=== PATIENT | male | born 1930 | race Caucasian/White ===

== ENCOUNTER 2016-11-17 17:44 | Emergency (ER) | payer MEDICARE, BC ==
[2016-11-17 18:57] LABS: Hematocrit 22 % (42-52); Mean Corpuscular HGB Conc 32 g/dl (31-36); Mean Corpuscular Hemoglobin 29 pg (27-31); Mean Corpuscular Volume 92 fL (80-94); Mean Platelet Volume 7 um3 (7.4-10.4); Red Blood Count 2.34 10^6/ul (4.0-5.4); Red Cell Distribution Width 22 % (10.5-15)
[2016-11-17 18:59] LABS: Add Diff/Slide Review? Manual Diff Added; Comments Flag Yes; White Blood Count 43.2 10^3/ul (3.5-10.8)
[2016-11-17 19:01] LABS: Hemoglobin 6.8 g/dl (14.0-18.0)
[2016-11-17 19:04] LABS: Albumin 3.3 g/dL (3.2-5.2); C Reactive Protein 7.83 mg/L (< 5.00); Calcium 8.9 mg/dL (8.6-10.3); EGFR African American 58.6 (>60); EGFR Non-African American 45.5 (>60); Globulin 3.8 g/dL (2-4); Potassium 4.1 mmol/L (3.5-5.0); Total Bilirubin 0.8 mg/dL (0.2-1.0); Total Protein 7.1 g/dL (6.4-8.9)
[2016-11-17 19:51] LABS: Eosinophils % 1 % (0-6); Immature Granulocytes 46 % (0-9); Metamyelocytes % 7 % (0-2); Myelocytes % 10 % (0-1); Neutrophil % 33 % (38-83)
[2016-11-17 19:56] LABS: Technical Review Performed By ROB0080
[2016-11-17] MEDS ORDERED: Insulin REGULAR(*) 1 UNITS UNIT SUBCUT ONE ×2 (19:57→21:29)
[2016-11-17 19:58] LABS: Polychromasia 1+
[2016-11-17 19:59] LABS: Hypochromasia 1+
--- NOTE | 2016-11-17 21:21 | RAD ---
INDICATION: Weakness COMPARISON: August 06, 2015 TECHNIQUE: An AP portable view obtained at 2054 hours is submitted. FINDINGS: Bones/Soft Tissues: There are no acute bony findings. Cardiomediastinal: The cardiomediastinal silhouette is normal. Lungs: There are no infiltrates. Pleura: There are small bilateral effusions. Other: None IMPRESSION: Small bilateral effusions.
--- NOTE | 2016-11-17 22:27 | ED ---
Michelle Ramesh Michael, scribed for Curt Colmenares MD on 11/17/16 at 2039 . HPI Diabetic - HPI Summary HPI Summary: 86 y/o male comes to the ED presenting with an increased blood glucose level of 299 that started 4 days ago. The reports that the blood glucose was elevated this afternoon at 1600 after the pt had a piece of cake. At the ED, the blood glucose was elevated to 346. She states the pt does not have a cough, CP, or SOB. The PMHx is significant for DM, Alzheimer's, and recently dx with leukemia. - History Of Current Complaint Chief Complaint: EDDiabeticProb Time Seen by Provider: 11/17/16 18:27 Hx Obtained From: Family/Cable Assembler, Medical Records Hx From Patient Unobtainable Due To: Other - Alzheimer's - Allergies/Home Medications Allergies/Adverse Reactions: Allergies Allergy/AdvReac Type Severity Reaction Status Date / Time Oxaprozin [From Daypro] Allergy Severe Hives Verified 11/03/16 12:38 Cephalexin [From Keflex] Allergy Unknown Unknown Verified 11/03/16 12:38 Reaction Details Sulfa Antibiotics Allergy Unknown Unknown Verified 11/03/16 12:38 Reaction Details Naproxen Allergy Hives Verified 11/03/16 12:38 Home Medications: Home Medications Donepezil TAB* [Aricept TAB*] 10 mg PO QPM 11/17/16 [History Confirmed 11/17/16] Humulin R 100units/Ml 16 unit IM PC 11/17/16 [History Confirmed 11/17/16] Loperamide HCl [Anti-Diarrheal] 2 mg PO QID PRN 11/17/16 [History Confirmed ] Ondansetron TAB* [Zofran Tab*] 4 mg PO Q6H PRN 11/17/16 [History Confirmed 11/17] glipiZIDE TAB* [Glucotrol TAB*] 10 mg PO BID 11/17/16 [History Confirmed ] PMH/Surg Hx/FS Hx/Imm Hx Endocrine/Hematology History: Reports: Hx Anticoagulant Therapy - aggrenox, Hx Diabetes, Hx Thyroid Disease Cardiovascular History: Reports: Hx Hypertension Denies: Hx Pacemaker/ICD GI History: Reports: Hx Gastroesophageal Reflux Disease, Hx Gastrointestinal Bleed Comment Only: Other GI Disorders - colectomy History: Reports: Hx Chronic Renal Failure, Other Problems/Disorders - prostate cancer, TURP Musculoskeletal History: Reports: Hx Arthritis, Other Musculoskeletal History - L knee replacement, R hip ORIF, R hip arthroplasty, rotator cuff Sensory History: Reports: Hx Contacts or Glasses, Hx Deafness - Right ear, Hx Hearing Aid - Left ear Opthamlomology History: Reports: Hx Contacts or Glasses Neurological History: Reports: Hx Dementia, Other Neuro Impairments/Disorders - alzheimers-PAIN CLINIC PT Psychiatric History: Reports: Hx Anxiety, Other Psychiatric Issues/Disorders - dementia, on Lexapro and memantine Denies: Hx Panic Disorder - Surgical History Surgery Procedure, Year, and Place: 1939-TONSILECTOMY 1997-TURP. 1946-PLASTIC SURGERY-SKIN GRAFTING Rt EAR 1998- Rt KNEE-MMT. 1947- APPENDECTOMY. R hip replacement. 1999- Lt KNEE & REPLACEMENT-07/03/06. 1984- Rt KNEE 09/07/03 -CARDIAC CATH-NO STENT. 1994- Rt SHOULDER-RTC 2010 & 2011- Rt HIP-PARTIAL THEN TOTAL REPLACEMENT. RIGHT ANKLE Infectious Disease History: No Infectious Disease History: Denies: Traveled Outside the [place] in Last 30 Days - Family History Known Family History: Positive: Diabetes - Social History Occupation: Retired Lives: With Family Alcohol Use: None Substance Use Type: Reports: None Substance Use Comment - Amount & Last Used: hydrocodone Smoking Status (MU): Never Smoked Tobacco Review of Systems Positive: Other - elevated blood glucose. Negative: Fever, Chills Negative: Erythema Negative: Sore Throat Negative: Chest Pain Negative: Shortness Of Breath, Cough Negative: Abdominal Pain, Vomiting, Nausea Negative: dysuria, hematuria Negative: Edema Negative: Rash Neurological: Other - no dizziness All Other Systems Reviewed And Are Negative: Yes Physical Exam - Summary Physical Exam Summary: Constitutional: Well-developed, Well-nourished, Alert. (-) Distressed Skin: Warm, Dry HENT: Normocephalic; Atraumatic Eyes: Conjunctiva normal Neck: Musculoskeletal ROM normal neck. (-) JVD, (-) Stridor, (-) Tracheal deviation Cardio: Rhythm regular, rate normal, Heart sounds normal; Intact distal pulses; The pedal pulses are 2+ and symmetric. Radial pulses are 2+ and symmetric. ~(-) Murmur Pulmonary/Chest wall: Effort normal. (-) Respiratory distress, (-) Wheezes, (-) Rales, positive rhonchi bilaterally in lung bases. Abd: Soft, (-) Tenderness, ~(-) Distension, (-) Guarding, (-) Rebound Musculoskeletal: (-) Edema Lymph: (-) Cervical adenopathy Neuro: Alert, Oriented x3 Psych: Mood and affect Normal Triage Information Reviewed: Yes Vital Signs On Initial Exam: Initial Vitals Temp Pulse Resp BP Pulse Ox 97.1 F 89 18 122/58 98 11/17/16 18:05 11/17/16 18:05 11/17/16 18:05 11/17/16 18:05 11/17/16 18:05 Vital Signs Reviewed: Yes Diagnostics - Vital Signs Vital Signs Temp Pulse Resp BP Pulse Ox 11/17/16 18:05 97.1 F 89 18 122/58 98 - Laboratory Lab Results: Lab Results 11/17/16 11/17/16 11/17/16 Range/Units 18:40 18:40 18:40 WBC 43.2 H (3.5-10.8) 10^3/ul RBC 2.34 L (4.0-5.4) 10^6/ul Hgb 6.8 L (14.0-18.0) g/dl Hct 22 L (42-52) % MCV 92 (80-94) fL MCH 29 (27-31) pg MCHC 32 (31-36) g/dl RDW 22 H (10.5-15) % Plt Count 27 L (150-450) 10^3/ul MPV 7 L (7.4-10.4) um3 Immature Gran % (Auto) 46 H (0-9) % Absolute Neuts (auto) 34.6 H (1.5-7.7) 10^3/ul Absolute Lymphs (auto) 5.2 H (1.0-4.8) 10^3/ul Absolute Monos (auto) 3.0 H (0-0.8) 10^3/ul Absolute Eos (auto) 0.4 (0-0.6) 10^3/ul Absolute Basos (auto) 0 (0-0.2) 10^3/ul Absolute Nucleated RBC 0 10^3/ul Neutrophils % 33 L (38-83) % Band Neutrophils % 29 H (0-8) % Lymphocytes % 12 L (25-47) % Monocytes % 7 (0-13) % Eosinophils % 1 (0-6) % Metamyelocytes % 7 H (0-2) % Myelocytes % 10 H (0-1) % Blast Cells % 1 H* % Nucleated RBCs/100 WBC 1 H (0-0) Normal RBC Morphology Pending Polychromasia 1+ Hypochromasia 1+ Sodium 129 L (133-145) mmol/L Potassium 4.1 (3.5-5.0) mmol/L Chloride 97 L (101-111) mmol/L Carbon Dioxide 26 (22-32) mmol/L Anion Gap 6 (2-11) mmol/L BUN 22 (6-24) mg/dL Creatinine 1.47 H (0.67-1.17) mg/dL Est GFR ( Amer) 58.6 (>60) Est GFR (Non-Af Amer) 45.5 (>60) BUN/Creatinine Ratio 15.0 (8-20) Glucose 346 H (70-100) mg/dL Lactic Acid 2.2 H* (0.5-2.0) mmol/L Calcium 8.9 (8.6-10.3) mg/dL Total Bilirubin 0.80 (0.2-1.0) mg/dL AST 65 H (13-39) U/L ALT 15 (7-52) U/L Alkaline Phosphatase 84 (34-104) U/L C-Reactive Protein 7.83 H (< 5.00) mg/L Total Protein 7.1 (6.4-8.9) g/dL Albumin 3.3 (3.2-5.2) g/dL Globulin 3.8 (2-4) g/dL Albumin/Globulin Ratio 0.9 L (1-3) Blood Type Antibody Screen 11/17/16 Range/Units 18:40 WBC (3.5-10.8) 10^3/ul RBC (4.0-5.4) 10^6/ul Hgb (14.0-18.0) g/dl Hct (42-52) % MCV (80-94) fL MCH (27-31) pg MCHC (31-36) g/dl RDW (10.5-15) % Plt Count (150-450) 10^3/ul MPV (7.4-10.4) um3 Immature Gran % (Auto) (0-9) % Absolute Neuts (auto) (1.5-7.7) 10^3/ul Absolute Lymphs (auto) (1.0-4.8) 10^3/ul Absolute Monos (auto) (0-0.8) 10^3/ul Absolute Eos (auto) (0-0.6) 10^3/ul Absolute Basos (auto) (0-0.2) 10^3/ul Absolute Nucleated RBC 10^3/ul Neutrophils % (38-83) % Band Neutrophils % (0-8) % Lymphocytes % (25-47) % Monocytes % (0-13) % Eosinophils % (0-6) % Metamyelocytes % (0-2) % Myelocytes % (0-1) % Blast Cells % % Nucleated RBCs/100 WBC (0-0) Normal RBC Morphology Polychromasia Hypochromasia Sodium (133-145) mmol/L Potassium (3.5-5.0) mmol/L Chloride (101-111) mmol/L Carbon Dioxide (22-32) mmol/L Anion Gap (2-11) mmol/L BUN (6-24) mg/dL Creatinine (0.67-1.17) mg/dL Est GFR ( Amer) (>60) Est GFR (Non-Af Amer) (>60) BUN/Creatinine Ratio (8-20) Glucose (70-100) mg/dL Lactic Acid (0.5-2.0) mmol/L Calcium (8.6-10.3) mg/dL Total Bilirubin (0.2-1.0) mg/dL AST (13-39) U/L ALT (7-52) U/L Alkaline Phosphatase (34-104) U/L C-Reactive Protein (< 5.00) mg/L Total Protein (6.4-8.9) g/dL Albumin (3.2-5.2) g/dL Globulin (2-4) g/dL Albumin/Globulin Ratio (1-3) Blood Type AB Negative Antibody Screen Pending Result Diagrams: 11/17/16 18:40 11/17/16 18:40 Lab Statement: Any lab studies that have been ordered have been reviewed, and results considered in the medical decision making process. - Radiology CXR Xray Interpretation: Positive (See Comments) - small bilateral effusions Radiology Interpretation Completed By: Radiologist Diabetic Course/Dx - Course Course Of Treatment: redraw of blood glucose-322. Discussed with Dr. Early at 2100-no blood transfussion is needed due to hemoglobin. Dr. Early recommends hospice. Discussed possibility UTI but declines straight catheter and pt cant urinate on command. He will follow up with Urgent Care or PCP tomorrow. As needed knows UTI can cause worsening hyperglycemia, kidney failure, and sepsis. - Diagnoses Provider Diagnoses: Hyperglycemia, Noncompliance with dietary restriction, Chronic anemia Discharge - Discharge Plan Condition: Stable Disposition: HOME Patient Education Materials: Diabetic Hyperglycemia (ED) Referrals: Andre Ferris MD [Primary Care Provider] - Additional Instructions: You will follow up with Dr. Ferris or Urgent Care tomorrow. Please return to the ED with worsening symptoms. The documentation as recorded by the Michelle gonzales Michael accurately reflects the service I personally performed and the decisions made by me, Curt Colmenares MD.
[2016-11-17 23:44] VITALS: BP 130/90
== END 2016-11-17 22:45 | disposition home or self-care (01) ==
LOC: ED 17:44
DX: E11.65 Type 2 diabetes mellitus with hyperglycemia (principal); D64.9 Anemia, unspecified
CPT/HCPCS: 36415; 71010; 80053; 83605; 85025; 86140; 86850; 86900; 86901; 99283

== ENCOUNTER 2017-01-03 15:02 | Inpatient (IN) | payer MEDICARE, BC ==
--- NOTE | 2017-01-03 15:48 | RAD ---
INDICATION: Leukocytosis COMPARISON: November 17, 2016 TECHNIQUE: An AP portable view obtained at 1523 hours is submitted. FINDINGS: Bones/Soft Tissues: There are no acute bony findings. Cardiomediastinal: The cardiomediastinal silhouette is unchanged when allowing mild rotation on the current examination Lungs: There is mild bibasilar atelectasis or small infiltrates. pleura: Small left-sided pleural effusion. Other: None IMPRESSION: MILD BIBASILAR INFILTRATE OR ATELECTASIS WITH SMALL LEFT-SIDED EFFUSION.
[2017-01-03 15:58] LABS: Hematocrit 20 % (42-52); Hemoglobin 6.8 g/dl (14.0-18.0); Mean Corpuscular HGB Conc 34 g/dl (31-36); Mean Corpuscular Hemoglobin 31 pg (27-31); Mean Corpuscular Volume 90 fL (80-94); Red Blood Count 2.22 10^6/ul (4.0-5.4); Red Cell Distribution Width 17 % (10.5-15); White Blood Count 26.5 10^3/ul (3.5-10.8)
[2017-01-03 16:02] LABS: Add Diff/Slide Review? Manual Diff Added; Comments Flag Yes
[2017-01-03 16:13] LABS: ALT 16 U/L (7-52); Albumin 2.9 g/dL (3.2-5.2); Alkaline Phosphatase 80 U/L (34-104); BUN/Creatinine Ratio 17.5 (8-20); Blood Urea Nitrogen 21 mg/dL (6-24); CO2 Carbon Dioxide 26 mmol/L (22-32); Calcium 8.5 mg/dL (8.6-10.3); Chloride 96 mmol/L (101-111); EGFR Non-African American 57.5 (>60); Globulin 3.7 g/dL (2-4); Glucose 302 mg/dL (70-100); Sodium 128 mmol/L (133-145); Total Protein 6.6 g/dL (6.4-8.9)
[2017-01-03] MEDS ORDERED: Levofloxacin 750 MG IVPREMIX(* 750 MG/150 ML BAG IVPB ONE (16:33)
[2017-01-03] MEDS ORDERED: Aztreonam (*) 2 GM in NS 0.9% 50 ML* 50 ML IVPB ONE (16:33)
[2017-01-03 16:35] LABS: Eosinophils % 1 % (0-6); Hypochromasia 2+; Immature Granulocytes 23 % (0-9); Metamyelocytes % 2 % (0-2); Myelocytes % 5 % (0-1); Neutrophil % 56 % (38-83); RBC Morphology Normal (Normal)
[2017-01-03 16:36] LABS: Add Path Review? YES
[2017-01-03] MEDS ORDERED: Sterile Water for Inj* 10 ML ONE (17:10)
[2017-01-03] MEDS ORDERED: Ondansetron INJ* 2 MG/ML VIAL IV PRN (18:29)
[2017-01-03] MEDS ORDERED: Acetaminophen TAB* 325 MG PO PRN (18:29)
--- NOTE | 2017-01-03 18:29 | RAD ---
HISTORY: Right leg swelling TECHNIQUE: Multiple transverse and longitudinal ultrasound images were obtained of the veins of the right lower extremity using grayscale, color Doppler, and spectral Doppler imaging with and without compression and with augmentation. FINDINGS: VEINS: The common femoral vein, deep femoral vein, femoral vein and popliteal vein are compressible throughout their course, with normal flow on color Doppler imaging and normal response to augmentation on spectral Doppler imaging. SOFT TISSUES: Grossly normal. No large popliteal fossa cyst was identified. IMPRESSION: No sonographic evidence of deep vein thrombosis.
[2017-01-03] MEDS ORDERED: Dextrose 50% Syringe 50 ML* 25 GM/50 ML SYRINGE IV PUSH PRN (18:35)
--- NOTE | 2017-01-03 22:25 | ED ---
berenice Ramesh Timothy, scribed for Curt Colmenares MD on 01/03/17 at 1639 . Lower Extremity - HPI Summary HPI Summary: LEVEL V CAVEAT: PT HAS ALZHEIMERS AND DEMENTIA AND IS UNABLE TO GIVE AN ACCURATE HISTORY Daniele Stevenson is an 86 yo male presenting to [facility] with 7/10 right heel pain due to a right heel wound as well as exacerbation of leukemia with a platelet count of 10, sent here by Dr. Barron. His pain is decreased with elevation of his right foot. His is present in room, and states he has had significant productive cough. He has a routine appointment tomorrow to have transfusion of 2 units of blood and 1 unit of platelets. His MHx includes leukemia, thyroid disease, CAD, HTN, aggrenox therapy, CVA, dementia, alzheimers, GERD, chronic renal failure, prostate cancer, TURP, arthritis, DM, anxiety. - History of Current Complaint Stated Complaint: SENT BY DR BARRON Time Seen by Provider: 01/03/17 16:41 Hx Obtained From: Patient, Family/Pathology Technician Hx From Patient Unobtainable Due To: Dementia Mechanism Of Injury: Unknown Onset of Pain: Immediate Onset/Duration: Still Present Severity Initially: Moderate Severity Currently: Moderate Pain Intensity: 7 Pain Scale Used: 0-10 Numeric Timing: Constant Location: Is Discrete @ - right heel Associated Signs And Symptoms: Positive: Other - blood blister Alleviating Factor(s): Rest, Elevation - Allergies/Home Medications Allergies/Adverse Reactions: Allergies Allergy/AdvReac Type Severity Reaction Status Date / Time Oxaprozin [From Daypro] Allergy Severe Hives Verified 12/27/16 12:52 Cephalexin [From Keflex] Allergy Unknown Unknown Verified 12/27/16 12:52 Reaction Details Sulfa Antibiotics Allergy Unknown Unknown Verified 12/27/16 12:52 Reaction Details Naproxen Allergy Hives Verified 12/27/16 12:52 Home Medications: Home Medications Acetaminophen TAB* [Tylenol TAB*] 650 mg PO Q4H PRN 01/03/17 [History Confirmed 01/03/17] Dutasteride (NF) [Avodart (NF)] 0.5 mg PO QPM 01/03/17 [History Confirmed ] PMH/Surg Hx/FS Hx/Imm Hx Endocrine/Hematology History: Reports: Hx Anticoagulant Therapy - aggrenox, Hx Diabetes, Hx Thyroid Disease Cardiovascular History: Reports: Hx Hypertension Denies: Hx Pacemaker/ICD GI History: Reports: Hx Gastroesophageal Reflux Disease, Hx Gastrointestinal Bleed Comment Only: Other GI Disorders - colectomy History: Reports: Hx Chronic Renal Failure, Other Problems/Disorders - prostate cancer, TURP Musculoskeletal History: Reports: Hx Arthritis, Other Musculoskeletal History - L knee replacement, R hip ORIF, R hip arthroplasty, rotator cuff Sensory History: Reports: Hx Contacts or Glasses, Hx Deafness - Right ear, Hx Hearing Aid - Left ear Opthamlomology History: Reports: Hx Contacts or Glasses Neurological History: Reports: Hx Dementia, Other Neuro Impairments/Disorders - alzheimers-PAIN CLINIC PT Psychiatric History: Reports: Hx Anxiety, Other Psychiatric Issues/Disorders - dementia, on Lexapro and memantine Denies: Hx Panic Disorder - Surgical History Surgery Procedure, Year, and Place: 1939-TONSILECTOMY 1997-TURP. 1946-PLASTIC SURGERY-SKIN GRAFTING Rt EAR 1998- Rt KNEE-MMT. 1947- APPENDECTOMY. R hip replacement. 1999- Lt KNEE & REPLACEMENT-07/03/06. 1984- Rt KNEE 09/07/03 -CARDIAC CATH-NO STENT. 1994- Rt SHOULDER-RTC 2010 & 2011- Rt HIP-PARTIAL THEN TOTAL REPLACEMENT. RIGHT ANKLE Infectious Disease History: No Infectious Disease History: Denies: Traveled Outside the [place] in Last 30 Days - Family History Known Family History: Positive: Diabetes Negative: Cardiac Disease, Hypertension - Social History Occupation: Retired Lives: At The Longterm Alcohol Use: None Substance Use Type: Reports: Prescribed Substance Use Comment - Amount & Last Used: hydrocodone Hx Tobacco Use: No Smoking Status (MU): Never Smoked Tobacco - Additional Comments History Additional Comments: LEVEL V CAVEAT: PT HAS ALZHEIMERS AND DEMENTIA AND IS UNABLE TO GIVE AN ACCURATE HISTORY Review of Systems - ROS Summary Review of Systems Summary: LEVEL V CAVEAT: PT HAS ALZHEIMERS AND DEMENTIA AND IS UNABLE TO REVIEW SYSTEMS Constitutional: Negative Negative: Fever, Chills Eyes: Negative Negative: Other - eye redness ENT: Negative Negative: Sore Throat Cardiovascular: Negative Negative: Chest Pain Positive: Cough. Negative: Shortness Of Breath Gastrointestinal: Negative Negative: Abdominal Pain, Vomiting, Nausea Genitourinary: Negative Negative: dysuria, hematuria Musculoskeletal: Negative Negative: Myalgia, Edema - leg Positive: Other - right heel wound Neurological: Negative Psychological: Normal All Other Systems Reviewed And Are Negative: No Physical Exam - Summary Physical Exam Summary: LEVEL V CAVEAT: PT HAS ALZHEIMERS AND DEMENTIA AND IS UNABLE TO ACTIVELY PARTICIPATE IN PE Constitutional: Well-developed, Well-nourished, Alert. (-) Distressed Skin: Warm, Dry. 2cm x 2cm blood blister on back of right heel. HENT: Normocephalic; Atraumatic Eyes: Conjunctiva normal Neck: Musculoskeletal ROM normal neck. (-) JVD, (-) Stridor, (-) Tracheal deviation Cardio: Rhythm regular, rate normal, Heart sounds normal; Intact distal pulses; The pedal pulses are 2+ and symmetric. Radial pulses are 2+ and symmetric. (-) Murmur Pulmonary/Chest wall: Effort normal. (-) Respiratory distress, (-) Wheezes, (-) Rales. Mild rhonchi in bases bilaterally. Abd: Soft, (-) Tenderness, (-) Distension, (-) Guarding, (-) Rebound Musculoskeletal: (+1) Edema in right leg Lymph: (-) Cervical adenopathy Neuro: Alert, Oriented x3 Psych: dementia Triage Information Reviewed: Yes Vital Signs On Initial Exam: Initial Vitals Pulse Ox 97 01/03/17 15:13 Vital Signs Reviewed: Yes Diagnostics - Vital Signs Vital Signs Temp Pulse Resp BP Pulse Ox 01/03/17 15:51 88 24 99 01/03/17 15:15 97.8 F 90 16 150/69 97 01/03/17 15:13 97 - Laboratory Lab Results: Lab Results 01/03/17 01/03/17 Range/Units 15:50 15:50 WBC 26.5 H (3.5-10.8) 10^3/ul RBC 2.22 L (4.0-5.4) 10^6/ul Hgb 6.8 L (14.0-18.0) g/dl Hct 20 L (42-52) % MCV 90 (80-94) fL MCH 31 (27-31) pg MCHC 34 (31-36) g/dl RDW 17 H (10.5-15) % Plt Count Pending MPV Pending Absolute Neuts (auto) Pending Absolute Lymphs (auto) Pending Absolute Monos (auto) Pending Absolute Eos (auto) Pending Absolute Basos (auto) Pending Absolute Nucleated RBC Pending Lactic Acid 1.9 (0.5-2.0) mmol/L Result Diagrams: 01/03/17 15:50 01/03/17 15:50 Lab Statement: Any lab studies that have been ordered have been reviewed, and results considered in the medical decision making process. Lower Extremity Course/Dx - Course Assessment/Plan: Daniele Francisco is an 86 yo male presenting [facility] with a wound to his right heel and dementia and alzheimers. After clinical examination and discussion with Dr. Early and Dr. Gaytan he will be admitted to [facility] for further evaluation and observation. - Diagnoses Provider Diagnoses: Pneumonia, CMML (chronic myelomonocytic leukemia) - Physician Notifications Discussed Care of Patient With: 1650 - Dr. Early (oncology) - discussed Pt condition, she is requesting admission for the Pt due to no active treatment for his CMML. 1706 - Dr. Gaytan (hospitalist) - discussed Pt condition, agrees to admit Pt. Instructed by Provider To: Admit As Inpatient Discharge - Discharge Plan Condition: Stable Disposition: ADMITTED TO [facility] Discharge Disposition Comment: admit for further observation and CMML treatment Referrals: Andre Barron MD [Primary Care Provider] - The documentation as recorded by the berenice gonzales Timothy accurately reflects the service I personally performed and the decisions made by , Curt Colmenares MD.
--- NOTE | 2017-01-04 02:06 | HP ---
HISTORY AND PHYSICAL: DATE OF ADMISSION: 01/03/17 PRIMARY CARE PROVIDER: Andre Ferris MD ATTENDING PHYSICIAN WHILE IN THE HOSPITAL: Kelvin Schulz MD * (report dictated by Sunil Garcia NP) CHIEF COMPLAINT: 1. Right heel wound. 2. Abnormal lab data. HISTORY OF PRESENT ILLNESS: Mr. Stevenson is an 86-year-old male patient. I would like to preface this report by saying that the patient has a significant amount of underlying dementia. He was unable to give me much history and unfortunately the family is not present to help. Most of the H and P was obtained from the patient's primary nurse, review of the EMS records, and review of the chart. The patient was apparently brought into the ER today because he was noted to have low platelet count, about 10,000. In addition to this, the family is also concerned that his right heel was noted to have a blister on it that has been growing in size and had been getting worse and they were worried about cellulitis and there was right foot swelling. The patient again has underlying dementia and he really cannot give me much history. 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 He stated that the family was concerned about this, so they brought him in. Ultimately, it was found in the ER that he appeared to have pneumonia. His H and H was 6.8 and 20. It has been running right around that range. It has fallen a little bit previously a couple of weeks ago at 7.7. The hospitalist service was asked to evaluate for admission because of the pneumonia that was found on chest x-ray; in addition to this, to help facilitate a possible blood transfusion. PAST MEDICAL HISTORY: According to the old records: 1. CML. 2. CVA. 3. History of prostate cancer. 4. Diabetes. 5. GERD. 6. Hypothyroidism. 7. Anemia. 8. Dementia. 9. CKD. PAST SURGICAL HISTORY: He has had: 1. Tonsillectomy. 2. Right ear surgery. 3. Left total knee replacement. 4. Right total hip replacement. 5. Right hip ORIF. 6. Rotator cuff repair. 7. Cardiac catheterization. 8. Knee arthroscopies. 9. TURP. 10. Appendectomy. HOME MEDICATIONS: Include: 1. Tylenol 650 mg every 4 hours as needed. 2. Lomotil 2 mg q.i.d. as needed. 3. Zofran 4 mg every 6 hours as needed. 4. Humulin 20 units subcu at 9 o'clock. 5. Multivitamin 1 tablet daily. 6. Aricept 10 mg daily. 7. Avodart 0.5 mg p.o. daily. 8. Zocor 10 mg daily. 9. AcipHex 20 mg daily. 10. Lexapro 20 mg daily. 11. Glipizide 10 mg p.o. b.i.d. 12. Synthroid 112 mcg p.o. daily. ALLERGIES TO MEDICATIONS: Include: 1. OXAPROZIN. 2. CEPHALEXIN. 3. SULFA. 4. NAPROXEN. FAMILY HISTORY: According to old records, mother was diabetic and father had a history of cancer. SOCIAL HISTORY: Does not smoke and does not drink. Surrogate decision maker is his . REVIEW OF SYSTEMS: Unable to be obtained. PHYSICAL EXAMINATION GENERAL: At this time, Mr. Stevenson is an 86-year-old male patient. He is a chronically ill-appearing patient. He is sitting in the ER stretcher. VITAL SIGNS: Reveals blood pressure 150/69, pulse 90, respirations 18, O2 sat 97%, and temperature 97.8. HEENT: Head is atraumatic. He does have scarring to the right side of his face , his ear, and down into his neck, otherwise atraumatic. Eyes: Sclerae is anicteric. NECK: Supple. Throat: Oral mucosa appears to be dry. No oropharyngeal erythema. LUNGS: He had rhonchi in the left lower base. Equal diaphragmatic expansion. HEART: Sounds S1 and S2. Regular rate. No murmurs, rubs, or gallops. ABDOMEN: Soft, flat, nontender. Bowel sounds present. EXTREMITIES: Pulses 2+ throughout. NEUROLOGIC: He is alert and awake, but he is alert to himself only, says he is in [place]. His speech is clear. He had no gross focal deficits. SKIN: Intact. DIAGNOSTIC STUDIES/LAB DATA: He does have what appears to be a fluid-filled bulla to the bottom of his right heel that appears to be blood filled with minimal surrounding erythema. There was no tenderness on palpation, otherwise skin intact. He had ecchymosis to both hands. Old medical records were reviewed. ASSESSMENT AND PLAN: Mr. Stevenson is an 86-year-old male patient with multiple medical problems, coming into the ER today with complaints of a right heel wound ; in addition to this, abnormal lab data, ultimately found to have pneumonia, being admitted under observation status for: 1. Pneumonia: At this point, I will go ahead and put him on Rocephin and azithromycin and I have ordered Legionella antigen and strep antigen. In addition to this, also ordered a flu swab and sputum culture if possible and we will start him on community-acquired antibiotics for the time being. 2. Right heel wound: At this point, we will continue with relieving pressure with a pillow under the legs, elevating the lower extremity. If this heel does open up, as it does appear to be a blister, probably from trauma, then we may need to consider an official wound consult. 3. CML: Again, this is pretty advanced disease. I did touch base with his oncologist. At this point, the patient has been getting transfusions periodically. I think he may benefit from hospice evaluation as there is no active treatment currently and the family has expressed interest in possibly pursuing this. We will get our palliative team to evaluate him. 4. History of cerebrovascular accident: Continue with secondary prevention. 5. Diabetes mellitus: Lispro sliding scale. 6. Gastroesophageal reflux disease: Continue AcipHex. 7. Hypothyroidism: Continue Synthroid. 8. Anemia: I am going to give him 1 unit of blood, repeat his labs in the morning. 9. Dementia: Continue with supportive care. 10. Chronic kidney disease: His creatinine appears to be stable. 11. Hyponatremia: He is right near his baseline. We will follow. 12. Code status: He is a DNR. 13. Fluids, electrolytes, and nutrition: He can have a consistent carb diet. 14. DVT prophylaxis: He will be placed on SCDs. TIME SPENT: Time spent on the admission was approximately 60 minutes; greater than half the time was spent [id number] with the patient obtaining my history and physical, the other half the time was spent going over the plan of care with the patient and implementing plan of care. I discussed the plan of care with my attending, Dr. Schulz. He is in agreement. SUNIL GARCIA NP CC: Dr. Ferris; Dr. Early* [id number]/[facility] #: [id number] GORD[place]
[2017-01-04] MEDS: Levothyroxine TAB* 112 MCG TAB PO SCH (05:25)
[2017-01-04 06:25] LABS: Hematocrit 22 % (42-52); Hemoglobin 7.4 g/dl (14.0-18.0); Mean Corpuscular HGB Conc 34 g/dl (31-36); Mean Corpuscular Hemoglobin 31 pg (27-31); Red Cell Distribution Width 16 % (10.5-15)
[2017-01-04 06:30] LABS: Comments Flag Yes; Mean Corpuscular Volume 90 fL (80-94); Mean Platelet Volume 11 um3 (7.4-10.4); Red Blood Count 2.42 10^6/ul (4.0-5.4); White Blood Count 26.3 10^3/ul (3.5-10.8)
[2017-01-04 06:32] LABS: Add Diff/Slide Review? Slide Review Added
[2017-01-04 06:44] LABS: BUN/Creatinine Ratio 16.5 (8-20); Calcium 8.8 mg/dL (8.6-10.3); EGFR African American 77.7 (>60); EGFR Non-African American 60.4 (>60); Potassium 4.5 mmol/L (3.5-5.0)
[2017-01-04] MEDS: Omeprazole CAP* 20 MG PO SCH (08:29)
[2017-01-04] MEDS: Insulin LISPRO* 1 UNITS UNIT SUBCUT SCH ×3 (08:29→17:36)
[2017-01-04] MEDS: Multivitamins/Minerals TAB PO SCH (08:29)
[2017-01-04] MEDS ORDERED: Escitalopram (NF) 20 MG TAB PO SCH (09:00)
[2017-01-04] MEDS ORDERED: ESCITALOPRAM 10 MG PO SCH ×2 (09:00→18:00)
[2017-01-04] MEDS ORDERED: Acetaminophen TAB* 325 MG PO ONE (09:20)
[2017-01-04] MEDS ORDERED: diPHENhydraMINE PO* 25 MG PO ONE (09:20)
--- NOTE | 2017-01-04 09:33 | PN ---
Subjective Date of Service: 01/04/17 Interval History: Patient seen this morning with at bedside. Patient mostly non-verbal. states leg seem to be normal. Does state he has been having a significant cough for the past week or so. Says Dr. Early brought up the possibility of hospice in the past few weeks however she was not ready at that point. Still not sure if she is ready, says she wants to make sure he's around for [facility]. Open to PC consult. Family History: Unchanged from Admission Social History: Unchanged from Admission Past Medical History: Unchanged from Admission Objective Active Medications: Acetaminophen (Tylenol Tab*) 650 mg PO Q4H PRN Acetaminophen (Tylenol Tab*) 650 mg PO ONCE ONE Atorvastatin Calcium (Lipitor*) 5 mg PO QPM MELVA Dextrose (D50w Syringe 50 Ml*) 12.5 gm IV PUSH .FOR FS < 60 - SS PRN Diphenhydramine HCl (Benadryl Po*) 25 mg PO ONCE ONE Donepezil HCl (Aricept Tab*) 10 mg PO QPM MELVA Escitalopram Oxalate (Lexapro (Nf)) 20 mg PO DAILY MELVA Finasteride (Proscar Tab*) 5 mg PO QPM MELVA Levofloxacin/Dextrose (Levaquin 750 Mg Ivpremix(*)) 750 mg in 150 mls @ 100 mls /hr IVPB Q48H MELVA Insulin Human Lispro (Humalog*) 0 units SUBCUT AC MELVA Levothyroxine Sodium (Synthroid Tab*) 112 mcg PO QAM@0600 MELVA Multivitamins/Minerals (Theragran/Minerals Tab*) 1 tab PO DAILY MELVA Omeprazole (Prilosec Cap*) 20 mg PO QAM@0700 MELVA Ondansetron HCl (Zofran Inj*) 4 mg IV Q6H PRN Vital Signs 01/03/17 01/03/17 01/03/17 17:45 17:52 18:00 Temperature 98.8 F Pulse Rate 94 88 88 Respiratory 22 16 22 Rate Blood Pressure 138/54 (mmHg) O2 Sat by Pulse 98 96 Oximetry 01/03/17 01/03/17 01/03/17 19:39 20:00 21:17 Temperature 98.8 F 98.2 F Pulse Rate 94 92 Respiratory 20 22 20 Rate Blood Pressure 138/54 143/57 (mmHg) O2 Sat by Pulse 98 98 98 Oximetry 01/03/17 01/04/17 01/04/17 23:03 00:00 03:38 Temperature 98.0 F 97.4 F Pulse Rate 92 86 Respiratory 22 20 Rate Blood Pressure 148/60 138/53 (mmHg) O2 Sat by Pulse 99 97 97 Oximetry 01/04/17 07:50 Temperature 98.7 F Pulse Rate 87 Respiratory 14 Rate Blood Pressure 140/56 (mmHg) O2 Sat by Pulse 98 Oximetry Oxygen Devices in Use Now: None Appearance: Elderly, M, laying in bed in NAD Eyes: No Scleral Icterus Ears/Nose/Mouth/Throat: - - no R ear, dry MM Neck: NL Appearance and Movements; NL JVP Respiratory: Symmetrical Chest Expansion and Respiratory Effort, Clear to Auscultation Cardiovascular: NL Sounds; No Murmurs; No JVD, RRR Abdominal: - - Soft, mild distension, BS+ Lymphatic: No Cervical Adenopathy Extremities: No Edema Skin: - - Scattered ecchymoses and petechiae, R heel with blister, intact Neurological: - - Alert, mostly non-verbal Result Diagrams: 01/04/17 05:59 01/04/17 05:59 Additional Lab and Data: Lab Results 01/03/17 01/03/17 Range/Units 15:50 15:50 WBC 26.5 H (3.5-10.8) 10^3/ul RBC 2.22 L (4.0-5.4) 10^6/ul Hgb 6.8 L (14.0-18.0) g/dl Hct 20 L (42-52) % MCV 90 (80-94) fL MCH 31 (27-31) pg MCHC 34 (31-36) g/dl RDW 17 H (10.5-15) % Plt Count Pending MPV Pending Absolute Neuts (auto) Pending Absolute Lymphs (auto) Pending Absolute Monos (auto) Pending Absolute Eos (auto) Pending Absolute Basos (auto) Pending Absolute Nucleated RBC Pending Lactic Acid 1.9 (0.5-2.0) mmol/L Microbiology and Other Data: Microbiology 01/03/17 21:20 Nasal Screen MRSA (PCR)(MARC) - Final Nasal Mrsa Negative 01/03/17 18:46 Influenza Types A,B Antigen (MARC) - Final Nasal Specimen received for Influenza A/B Molecular testing Assess/Plan/Problems-Billing Assessment: CAP, anemia, thrombocytopenia and R heel ulcer in an 86 yo M with ox of transfusion dependent CML, advanced dementia, hypothyroidism, GERD, DM - Patient Problems (1) CAP (community acquired pneumonia) Current Visit: Yes Comment: Continue CTX and Azithromycin. Not requiring O2. (2) CML (chronic myelocytic leukemia) Current Visit: Yes Comment: Advanced, transfusion dependent. Patient either did not tolerate or did not want treatments in the past. Oncology ordered additional blood and platelets this morning. Continue to monitor daily. Dr. Early to speak with . Palliative Care consult placed. Seems would like patient to be around for [place]. (3) Blister of right heel Current Visit: Yes Comment: Does not appear infected, is intact. Continue to relieve pressure with elevation. (4) Diabetes Current Visit: No Comment: Insulin SS (5) GERD (gastroesophageal reflux disease) Current Visit: No Comment: continue home omeprazole (6) Hypothyroidism Current Visit: No Comment: continue home synthroid (7) DVT prophylaxis Current Visit: No Comment: SCDs Status and Disposition: Inpatient for CAP, hospice/PC eval
[2017-01-04 10:55] LABS: Eosinophils % 1 % (0-6); Metamyelocytes % 2 % (0-2); Myelocytes % 1 % (0-1); Neutrophil % 66 % (38-83)
[2017-01-04 10:57] LABS: Immature Granulocytes 19 % (0-9)
[2017-01-04 10:59] LABS: Basophilic Stippling 1+
[2017-01-04] MEDS: glipiZIDE TAB* 5 MG PO SCH ×2 (13:12→21:33)
--- NOTE | 2017-01-04 13:44 | PN ---
Progress Note - Progress Note SOAP: Subjective: he has no complaints today Objective: Vital Signs Temp Pulse Resp BP Pulse Ox 98.7 F 87 15 140/56 98 01/04/17 07:50 01/04/17 07:50 01/04/17 10:58 01/04/17 07:50 01/04/17 07:50 confused, sitting up in NAD right ear dressed CTA s1 s2 nl soft nt +bs, ?splenomegaly diffuse scattered ecchymoses, most prominent on arms, 3 cm blister right heel confused but pleasant moving all extremities Laboratory Results - last 24 hr 01/03/17 01/03/17 01/03/17 15:50 15:50 15:50 WBC 26.5 H RBC 2.22 L Hgb 6.8 L Hct 20 L MCV 90 MCH 31 MCHC 34 RDW 17 H Plt Count 26 L MPV Not Reportable Immature Gran % (Auto) 23 H Neut % (Auto) Lymph % (Auto) [place] % (Auto) Eos % (Auto) Baso % (Auto) Absolute Neuts (auto) 21.0 H Absolute Lymphs (auto) 3.4 Absolute Monos (auto) 1.3 H Absolute Eos (auto) 0.3 Absolute Basos (auto) 0 Absolute Nucleated RBC Not Reportable Neutrophils % 56 Band Neutrophils % 16 H Lymphocytes % 13 L Monocytes % 5 Eosinophils % 1 Metamyelocytes % 2 Myelocytes % 5 H Blast Cells % 2 H* Nucleated RBC % Nucleated RBCs/100 WBC 1 H Normal RBC Morphology Normal Hypochromasia 2+ Basophilic Stippling Elliptocytes Hem Pathologist Commnt INR (Anticoag Therapy) 1.00 APTT 30.6 Sodium 128 L Potassium TNP Chloride 96 L Carbon Dioxide 26 Anion Gap TNP BUN 21 Creatinine 1.20 H Est GFR ( Amer) 74.0 Est GFR (Non-Af Amer) 57.5 BUN/Creatinine Ratio 17.5 Glucose 302 H POC Glucose (mg/dL) Lactic Acid Calcium 8.5 L Total Bilirubin 0.90 AST TNP ALT 16 Alkaline Phosphatase 80 Total Protein 6.6 Albumin 2.9 L Globulin 3.7 Albumin/Globulin Ratio 0.8 L Influenza A (Rapid) Influenza B (Rapid) Blood Type Antibody Screen Crossmatch 01/03/17 01/03/17 01/03/17 15:50 17:00 17:00 WBC RBC Hgb Hct MCV MCH MCHC RDW Plt Count MPV Immature Gran % (Auto) Neut % (Auto) Lymph % (Auto) [place] % (Auto) Eos % (Auto) Baso % (Auto) Absolute Neuts (auto) Absolute Lymphs (auto) Absolute Monos (auto) Absolute Eos (auto) Absolute Basos (auto) Absolute Nucleated RBC Neutrophils % Band Neutrophils % Lymphocytes % Monocytes % Eosinophils % Metamyelocytes % Myelocytes % Blast Cells % Nucleated RBC % Nucleated RBCs/100 WBC Normal RBC Morphology Hypochromasia Basophilic Stippling Elliptocytes Hem Pathologist Commnt INR (Anticoag Therapy) APTT Sodium Potassium 4.5 Chloride Carbon Dioxide Anion Gap BUN Creatinine Est GFR ( Amer) Est GFR (Non-Af Amer) BUN/Creatinine Ratio Glucose POC Glucose (mg/dL) Lactic Acid 1.9 Calcium Total Bilirubin AST 56 H ALT Alkaline Phosphatase Total Protein Albumin Globulin Albumin/Globulin Ratio Influenza A (Rapid) Influenza B (Rapid) Blood Type AB Negative Antibody Screen Negative Crossmatch See Detail 01/03/17 01/03/17 01/04/17 17:56 20:07 05:59 WBC 26.3 H RBC 2.42 L Hgb 7.4 L Hct 22 L MCV 90 MCH 31 MCHC 34 RDW 16 H Plt Count 5 L* D MPV 11 H Immature Gran % (Auto) 19 H Neut % (Auto) 77.3 Lymph % (Auto) 7.1 L [place] % (Auto) 13.3 H Eos % (Auto) 1.3 Baso % (Auto) 1.0 Absolute Neuts (auto) 20.4 H Absolute Lymphs (auto) 1.9 Absolute Monos (auto) 3.5 H Absolute Eos (auto) 0.3 Absolute Basos (auto) 0.3 H Absolute Nucleated RBC 0.17 Neutrophils % 66 Band Neutrophils % 16 H Lymphocytes % 7 L Monocytes % 5 Eosinophils % 1 Metamyelocytes % 2 Myelocytes % 1 Blast Cells % 2 H* Nucleated RBC % 0.6 Nucleated RBCs/100 WBC 1 H Normal RBC Morphology Not Reportable Hypochromasia Basophilic Stippling 1+ Elliptocytes 1+ Hem Pathologist Commnt INR (Anticoag Therapy) APTT Sodium Potassium Chloride Carbon Dioxide Anion Gap BUN Creatinine Est GFR ( Amer) Est GFR (Non-Af Amer) BUN/Creatinine Ratio Glucose POC Glucose (mg/dL) Lactic Acid 1.5 Calcium Total Bilirubin AST ALT Alkaline Phosphatase Total Protein Albumin Globulin Albumin/Globulin Ratio Influenza A (Rapid) Negative Influenza B (Rapid) Negative Blood Type Antibody Screen Crossmatch 01/04/17 01/04/17 01/04/17 05:59 05:59 07:53 WBC RBC Hgb Hct MCV MCH MCHC RDW Plt Count MPV Immature Gran % (Auto) Neut % (Auto) Lymph % (Auto) [place] % (Auto) Eos % (Auto) Baso % (Auto) Absolute Neuts (auto) Absolute Lymphs (auto) Absolute Monos (auto) Absolute Eos (auto) Absolute Basos (auto) Absolute Nucleated RBC Neutrophils % Band Neutrophils % Lymphocytes % Monocytes % Eosinophils % Metamyelocytes % Myelocytes % Blast Cells % Nucleated RBC % Nucleated RBCs/100 WBC Normal RBC Morphology Hypochromasia Basophilic Stippling Elliptocytes Hem Pathologist Commnt INR (Anticoag Therapy) 1.11 APTT Sodium 131 L Potassium 4.5 Chloride 99 L Carbon Dioxide 26 Anion Gap 6 BUN 19 Creatinine 1.15 Est GFR ( Amer) 77.7 Est GFR (Non-Af Amer) 60.4 BUN/Creatinine Ratio 16.5 Glucose 192 H POC Glucose (mg/dL) 243 H Lactic Acid Calcium 8.8 Total Bilirubin AST ALT Alkaline Phosphatase Total Protein Albumin Globulin Albumin/Globulin Ratio Influenza A (Rapid) Influenza B (Rapid) Blood Type Antibody Screen Crossmatch 01/04/17 11:47 WBC RBC Hgb Hct MCV MCH MCHC RDW Plt Count MPV Immature Gran % (Auto) Neut % (Auto) Lymph % (Auto) [place] % (Auto) Eos % (Auto) Baso % (Auto) Absolute Neuts (auto) Absolute Lymphs (auto) Absolute Monos (auto) Absolute Eos (auto) Absolute Basos (auto) Absolute Nucleated RBC Neutrophils % Band Neutrophils % Lymphocytes % Monocytes % Eosinophils % Metamyelocytes % Myelocytes % Blast Cells % Nucleated RBC % Nucleated RBCs/100 WBC Normal RBC Morphology Hypochromasia Basophilic Stippling Elliptocytes Hem Pathologist Commnt INR (Anticoag Therapy) APTT Sodium Potassium Chloride Carbon Dioxide Anion Gap BUN Creatinine Est GFR ( Amer) Est GFR (Non-Af Amer) BUN/Creatinine Ratio Glucose 370 H POC Glucose (mg/dL) Lactic Acid Calcium Total Bilirubin AST ALT Alkaline Phosphatase Total Protein Albumin Globulin Albumin/Globulin Ratio Influenza A (Rapid) Influenza B (Rapid) Blood Type Antibody Screen Crossmatch Assessment: 86 yo M w CMML and dementia, off all therapy, but not quite palliative care, who was sent in for concern for cellulitis (which he does NOT have) but found to have PNA. I discussed his case at length with his and two daughters. They are very hopeful to keep him alive through [facility] but do NOT want him "poked and prodded". I have tried to help them see the limitations that we have if they are not willing to pursue hospice. I did recommend considering a do not transfer to the hospital compromise, so that he can still get oral antibiotics and blood transfusions as an outpatient, but NOT come back to the hospital. After some conversation they did seem amenable to this, but wanted to discuss amongst themselves further. From a heme perspective he can be transfused with a Hb <7 and platelets <15 or bleeding, and already has this arranged to be checked as an outpatient next week.
[2017-01-04 17:40] LABS: Mean Platelet Volume 8 um3 (7.4-10.4)
[2017-01-04 17:47] LABS: Comments Flag Yes
[2017-01-04] MEDS ORDERED: Donepezil TAB* 5 MG PO SCH (18:00)
[2017-01-04] MEDS ORDERED: Atorvastatin* 10 MG TAB PO SCH (18:00)
[2017-01-04] MEDS ORDERED: Finasteride TAB* 5 MG PO SCH (18:00)
[2017-01-05 05:12] LABS: Hematocrit 27 % (42-52); Hemoglobin 9.2 g/dl (14.0-18.0); Mean Corpuscular HGB Conc 34 g/dl (31-36); Mean Corpuscular Hemoglobin 30 pg (27-31); Mean Corpuscular Volume 88 fL (80-94); Mean Platelet Volume 8 um3 (7.4-10.4); Red Blood Count 3.06 10^6/ul (4.0-5.4); Red Cell Distribution Width 16 % (10.5-15); White Blood Count 26.4 10^3/ul (3.5-10.8)
[2017-01-05 05:13] LABS: Add Diff/Slide Review? Manual Diff Added; Comments Flag Yes
[2017-01-05] MEDS: Levothyroxine TAB* 112 MCG TAB PO SCH (05:15)
[2017-01-05 05:28] LABS: Eosinophils % 2 % (0-6); Immature Granulocytes 17 % (0-9); Myelocytes % 5 % (0-1); Neutrophil % 57 % (38-83); Reactive Lymph % 4 % (0-6)
[2017-01-05 05:30] LABS: Add Path Review? YES; Hypochromasia 1+
[2017-01-05] MEDS: Omeprazole CAP* 20 MG PO SCH (06:25)
--- NOTE | 2017-01-05 08:24 | DCNOTE ---
Patient seen this AM. not present yet. He has no complaints. Denies any pain, SOB. On exam, RRR, s1 and s2 present, no m/g/r, lungs clear in anterior nieves, some improvement in scattered ecchymoses, R heel blood blister less tense, still intact. Above transfusion parameters for platelets and PRBC, no indication for further transfusion at this time. OK to discharge back to [facility] to complete oral ABx therapy. Outpatient Oncology follow-up and continued discussions about goals of care. Will discuss further with when she comes in regarding possible DNH order.
--- NOTE | 2017-01-05 08:36 | PN ---
Hospitalist Progress Note Spoke at length with . She says she is leaning towards making the patient do not hospitalize but would like to continue to discuss more with her family prior to making it official. She says she will continue to talk with the staff at [facility] to keep them informed of this change but would not like amend the MOLST form at this time.
[2017-01-05] MEDS: glipiZIDE TAB* 5 MG PO SCH (08:56)
[2017-01-05] MEDS: Multivitamins/Minerals TAB PO SCH (08:56)
[2017-01-05] MEDS: Insulin LISPRO* 1 UNITS UNIT SUBCUT SCH ×2 (08:56→12:37)
[2017-01-05] MEDS ORDERED: Levofloxacin TAB* 750 MG PO SCH (09:00)
[2017-01-05] MEDS ORDERED: Levofloxacin 750 MG IVPREMIX(* 750 MG/150 ML BAG IVPB SCH ×2 (09:00→18:00)
[2017-01-05 13:03] VITALS: BP 164/60
--- NOTE | 2017-01-06 04:07 | DS ---
DISCHARGE SUMMARY: DATE OF ADMISSION: 01/03/17 DATE OF DISCHARGE: 01/05/17 PRIMARY CARE PHYSICIAN: Dr. Ferris. PRINCIPAL DISCHARGE DIAGNOSES: 1. Community-acquired pneumonia. 2. Anemia. 3. 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 SECONDARY DIAGNOSES: 1. Cerebrovascular accident. 2. Diabetes. 3. Gastroesophageal reflux disease. 4. Hypothyroidism. 5. Dementia. 6. Chronic kidney disease. DISCHARGE MEDICATION REGIMEN: 1. Tylenol 650 mg by mouth every 4 hours as needed for pain. 2. Loperamide 2 mg by mouth 4 times daily as needed for diarrhea. 3. Zofran 4 mg by mouth every 6 hours as needed for nausea. 4. Humulin 20 units subcutaneous at 9 a.m. 5. Multivitamin 1 tablet by mouth daily. 6. Donepezil 10 mg by mouth nightly. 7. Dutasteride 0.5 mg by mouth nightly. 8. Simvastatin 10 mg by mouth nightly. 9. AcipHex 20 mg by mouth daily. 10. Lexapro 20 mg by mouth daily. 11. Glipizide 10 mg by mouth 2 times daily. 12. Synthroid 112 mcg by mouth daily. 13. Levaquin 750 mg by mouth every other day. STUDIES DONE DURING HOSPITALIZATION: Chest x-ray, impression: Mild bibasilar infiltrate or atelectasis with small left-sided effusion. Lower extremity Doppler, impression: No evidence of DVT. HISTORY OF PRESENT ILLNESS AND HOSPITAL SUMMARY: Please see the full history and physical by Sunil Garcia NP for full details. Briefly, Mr. Stevenson is an 86- year- old male with a past medical history as above including transfusion- dependent CML, who presented to the hospital. There was some concern initially for right lower extremity swelling and tenderness at [facility]. Dr. Ferris was alerted and told [facility] to send the patient to the hospital. However, on evaluation here, there did not seem to be any evidence of cellulitis. However, chest x-ray did show possibility of pneumonia and the patient had been having a cough for sometime. He was started on antibiotics. It was also noted that he was anemic and thrombocytopenic here. He received transfusions of both packed red blood cells and platelets with improvement in his counts. The patient did not require any oxygen and seemed to be back to his baseline. After plans for discharge back to [facility], I was contacted by Rita who felt that the patient was not appropriate for their level of care as he needed significant assistance. After this, discussions were had further with the , who was agreeable to enroll the patient in hospice, so he can have additional services in order to get him back to [facility]. [facility] the [facility] day of discharge. Dr. Early will be the attending of record. TIME SPENT: Total time spent on this discharge 45 minutes. This is just a summary of the hospitalization. Please see the full medical record for further details. CC: Dr. Ferris* [id number]/[facility] #: [id number]
== END 2017-01-05 14:25 | disposition hospice, home (50) | DRG 194 ==
LOC: ED 15:02 → MED 17:09 → OBSVTOIN 01-04 09:30
PROVIDERS: ADMIT Internal Medicine; ATTEND Hospitalist
PROC: 30233R1 Transfusion of Nonautologous Platelets into Peripheral Vein, Percutaneous Approach (ICD-10-PCS; principal; 2017-01-04)
PROC: 30233N1 Transfusion of Nonautologous Red Blood Cells into Peripheral Vein, Percutaneous Approach (ICD-10-PCS; 2017-01-04)
DX: J18.9 Pneumonia, unspecified organism (principal); C93.10 Chronic myelomonocytic leukemia not having achieved remission; E11.22 Type 2 diabetes mellitus with diabetic chronic kidney disease; J90 Pleural effusion, not elsewhere classified; E87.1 Hypo-osmolality and hyponatremia; D69.6 Thrombocytopenia, unspecified; L97.419 Non-pressure chronic ulcer of right heel and midfoot with unspecified severity; G30.9 Alzheimer's disease, unspecified; F02.80 Dementia in other diseases classified elsewhere, unspecified severity, without behavioral disturbance, psychotic disturbance, mood disturbance, and anxiety; I25.10 Atherosclerotic heart disease of native coronary artery without angina pectoris; K21.9 Gastro-esophageal reflux disease without esophagitis; M19.90 Unspecified osteoarthritis, unspecified site; F41.9 Anxiety disorder, unspecified; I12.9 Hypertensive chronic kidney disease with stage 1 through stage 4 chronic kidney disease, or unspecified chronic kidney disease; N18.9 Chronic kidney disease, unspecified; Z96.641 Presence of right artificial hip joint; Z96.653 Presence of artificial knee joint, bilateral; Z96.661 Presence of right artificial ankle joint; F11.90 Opioid use, unspecified, uncomplicated; E03.9 Hypothyroidism, unspecified; D64.9 Anemia, unspecified; Z66 Do not resuscitate; S90.821A Blister (nonthermal), right foot, initial encounter; Z86.73 Personal history of transient ischemic attack (TIA), and cerebral infarction without residual deficits; Z85.46 Personal history of malignant neoplasm of prostate; Z88.6 Allergy status to analgesic agent; Z88.1 Allergy status to other antibiotic agents; Z88.2 Allergy status to sulfonamides; Z83.3 Family history of diabetes mellitus; Z80.9 Family history of malignant neoplasm, unspecified; Z79.4 Long term (current) use of insulin
CPT/HCPCS: 36415; 71010; 80048; 80053; 82947; 83605; 85025; 85049; 85060; 85610; 85730; 86850; 86900; 86901; 86922; 87040; 87502; 87641; A9270-GY; G0378; P9016; P9035; P9040